=== PATIENT | female | born 1975 | race Caucasian/White ===

== ENCOUNTER 2019-05-06 22:15 | Emergency (ER) | payer OTHER ==
[~2019-05-06] VITALS: Ht 170.2 cm; Wt 52.2 kg
[2019-05-06 22:55] VITALS: BP 135/81
--- NOTE | 2019-05-06 23:09 | PHYS DOC ---
Adult General Chief Complaint Chief Complaint: ELBOW PROBLEM HPI HPI Patient is a 43 year old male who presents to the emergency department with complaints of left elbow pain for the last 4 days. Patient states she was out running on Wednesday when she fell onto her left elbow. She states she has been taking ibuprofen at home for relief of the pain with no reduction in her symptoms. She currently rates the pain a 10 out of 10 on the pain scale. She also reports an abrasion to her posterior left elbow, her last tetanus shot was about 3 years ago. ROS Patient denies any fever, head, neck, or back pain. She denies any shortness of breath, nausea, vomiting, or abdominal pain. Patient denies any numbness or tingling of the affected extremity. All other ROS is neg unless otherwise noted in HPI. (MARKEL RANDALL APRN) Review of Systems Review of Systems See Above (MARKEL RANDALL APRN) Current Medications Current Medications Current Medications Medications (Trade) Dose Ordered Sig/Chauncey Start Time Stop Time Status Last Admin Dose Admin Acetaminophen/ Hydrocodone Bitart (Lortab 5/325) 1 tab 1X ONCE 05/06/19 23:30 05/06/19 23:31 DC 05/06/19 23:12 1 TAB (NBA BERKOWITZ DO) Allergies Allergies Allergies Coded Allergies Type Severity Reaction Last Updated Verified No Known Drug Allergies 05/06/19 No (NBA BERKOWITZ DO) Physical Exam Physical Exam See Above Constitutional: Well developed, well nourished, no acute distress, non-toxic appearance. [] HENT: Normocephalic, atraumatic, bilateral external ears normal, nose normal. [] Eyes: PERRLA, conjunctiva normal, no discharge. [] Neck: Normal range of motion, no stridor. [] Cardiovascular:Heart rate regular rhythm Lungs & Thorax: Respirations even and unlabored, no retractions, no respiratory distress Skin: Warm, dry, no erythema, no rash; abrasion noted to posterior left elbow[] Extremities: Posterior left elbow TTP, no cyanosis, no clubbing, limited ROM due to pain, 1+ edema. [] Neurologic: Alert and oriented X 3, normal motor function, normal sensory function, no focal deficits noted. [] Psychologic: Affect normal, judgement normal, mood normal. [] (MARKEL RANDALL APRN) Current Patient Data Vital Signs Vital Signs Date Time Temp Pulse Resp B/P (MAP) Pulse Ox O2 Delivery O2 Flow Rate FiO2 05/06/19 23:12 16 98 Room Air 05/06/19 22:55 98.8 99 135/81 (99) 98.8 (NBA BERKOWITZ DO) EKG EKG [] (MARKEL RANDALL APRN) Radiology/Procedures Radiology/Procedures L elbow no acute findings, read by Dr. Berkowitz. PROCEDURE: ELBOW LEFT 3V EXAM: LEFT ELBOW 3 VIEWS. HISTORY: Left elbow pain after a fall. COMPARISON: None. FINDINGS: No fractures are identified. Joint spaces and alignment are maintained. There is no joint effusion. IMPRESSION: 1. No fracture or joint effusion.[] (MARKEL RANDALL APRN) Course & Med Decision Making Course & Med Decision Making Pertinent Labs and Imaging studies reviewed. (See chart for details) L elbow contusion, abrasion, and pain x-ray negative for acute findings or fracture. Pt was given one 5/325 mg hydrocodone in the ER. Recommend ice, elevation and compression. Follow up with Dr. Lmaar if sx persist, return to ER if sx worsen. Rx for naproxen. Patient verbalized an understanding of home care, medications, follow-up, and return to ED instructions and was in agreement with the plan of care. (MARKEL RANDALL APRN) Dragon Disclaimer Dragon Disclaimer This electronic medical record was generated, in whole or in part, using a voice recognition dictation system. (MARKEL RANDALL APRN) Splinting Splinting : Location: Left elbow Pre-Made Type: TERESA bandage Pre-Proc Neuro Vasc Exam: normal Post-Proc Neuro Vasc Exam: normal, unchanged from pre-exam (NBA BERKOWITZ DO) Departure Departure Impression: Primary Impression: Left elbow contusion Additional Impressions: Left elbow pain Abrasion of left elbow, initial encounter Disposition: HOME, SELF-CARE Condition: STABLE Referrals: NO PCP (PCP) REBEL LAMAR MD Patient Instructions: Elbow Contusion, [id number] Additional Instructions: Fill prescription(s) and use as directed. Recommend application of ice, elevation, and rest of affected extremity. Wear the teresa wrap that was placed for comfort. Follow up with Dr. Lamar if symptoms persist. Return to the ER if your symptoms worsen. Scripts Naproxen (NAPROXEN) 375 Mg Tablet 1 TAB PO BID for 10 Days, #20 TAB 0 Refills Prov: MARKEL RANDALL APRN 05/06/19 Attending Signature Attending Signature I have reviewed the PA/SOLID SURFACE FABRICATOR's note and plan of care. I was available for consultation as needed during the patient's visit in the emergency department. I agree with the clinical impression, plan, and disposition. (NBA BERKOWITZ DO) Problem Qualifiers Primary Impression: Left elbow contusion Encounter type: initial encounter Qualified Codes: S50.02XA - Contusion of left elbow, initial encounter MARKEL RANDALL APRN May 06, 2019 23:09 NBA BERKOWITZ DO May 07, 2019 00:23
[2019-05-06] MEDS ORDERED: HYDROcodone/APAP 5/325MG 1 TAB TABLET PO ONE (23:30)
[2019-05-06] MEDS ORDERED: NAPR-695 PO (23:43)
--- NOTE | 2019-05-06 23:44 | RAD ---
EXAM: LEFT ELBOW 3 VIEWS. HISTORY: Left elbow pain after a fall. COMPARISON: None. FINDINGS: No fractures are identified. Joint spaces and alignment are maintained. There is no joint effusion. IMPRESSION: 1. No fracture or joint effusion. Electronically signed by: Sumi Henao MD (05/06/2019 11:41 PM) [facility] [id number]
== END 2019-05-07 00:03 | disposition home or self-care (01) ==
LOC: ER 22:15
DX: S50.02XA Contusion of left elbow, initial encounter (principal); W18.39XA Other fall on same level, initial encounter; Y93.89 Activity, other specified; Y92.89 Other specified places as the place of occurrence of the external cause; Y99.9 Unspecified external cause status
CPT/HCPCS: 73080; 99284